=== PATIENT | female | born 1985 | race Caucasian/White ===

== ENCOUNTER 2020-05-02 10:07 | Day surgery (SDC) | payer OTHER, SELFPAY ==
[~2020-05-02] VITALS: Ht 165.1 cm; Wt 64.4 kg
[~2020-05-02 10:07] MED LIST: LIDOCAINE 2% 100MG/5ML SDV (FOR ANES.) As Ordered ONE; LR 1,000 ML IV ONE; MIDAZOLAM INJ 2MG/2ML VIAL (J2250 PER 1MG) As Ordered ONE; MULTCAP PO; VALT500T PO; fentaNYL 100 MCG/2 ML INJECTION (J3010) As Ordered ONE
[2020-05-02 10:39] LABS: HEMATOCRIT 44.6 % (36.0-47.0); MEAN CORPUSCULAR HEMOGLOBIN 30.2 pg (27.0-33.0); MEAN CORPUSCULAR HGB CONC 33.6 g/dl (32.0-36.5); MEAN CORPUSCULAR VOLUME 89.7 fl (80.0-96.0); PLATELET COUNT, AUTOMATED 281 10^3/uL (150-450); RED BLOOD COUNT 4.97 10^6/uL (4.00-5.40); WHITE BLOOD COUNT 4.4 10^3/uL (4.0-10.0)
[2020-05-02] MEDS ORDERED: SILVER NITRATE APPLICATOR As Ordered ONE (10:50)
[2020-05-02 10:59] LABS: HCG, SERUM QUALITATIVE NEGATIVE (NEGATIVE)
[2020-05-02 11:07] LABS: AMORPHOUS SEDIMENT SMALL (NEGATIVE); APPEARANCE, URINE HAZY (CLEAR); BACTERIA, URINE AUTO 1+ (NEGATIVE); BILIRUBIN, URINE AUTO NEGATIVE (NEGATIVE); BLOOD, URINE BLOOD 1+ (NEGATIVE); COLOR, URINE YELLOW (YELLOW); GLUCOSE, URINE (UA) AUTO NEGATIVE (NEGATIVE); KETONE, URINE AUTO NEGATIVE (NEGATIVE); LEUKOCYTE ESTERASE, URINE AUTO NEGATIVE (NEGATIVE); MUCUS, URINE LARGE (NEGATIVE); NITRITE, URINE AUTO NEGATIVE (NEGATIVE); PROTEIN, URINE AUTO NEGATIVE (NEGATIVE); RBC, URINE AUTO 4 /HPF (0-3); SPECIFIC GRAVITY URINE AUTO 1.023 (1.002-1.035); SQUAMOUS EPITHELIAL CELL UR AU 8 /HPF (0-6); UROBILINOGEN, URINE AUTO 0.2 mg/dL (0.0-2.0); WBC, URINE AUTO 0 /HPF (0-3)
[2020-05-02] MEDS ORDERED: ceFAZolin 2 GM/D5W 50 ML IV BAG (J0690 PER 500MG) As Ordered ONE (11:08)
[2020-05-02] MEDS ORDERED: BUPIVACAINE HCL 0.5% 30 ML VIAL As Ordered ONE (11:32)
[2020-05-02] MEDS ORDERED: dexameTHASONE 4 MG/ML 1ML VIAL (J1100 PER 1MG) As Ordered ONE (11:33)
[2020-05-02] MEDS ORDERED: propofoL 200 MG/20 ML VIAL As Ordered ONE (11:33)
[2020-05-02] MEDS ORDERED: KETOROLAC 60MG 2ML VIAL As Ordered ONE (11:34)
[2020-05-02] MEDS ORDERED: ONDANSETRON 4MG/2ML VIAL As Ordered ONE (11:34)
[2020-05-02] MEDS ORDERED: PHENYLephrine HCL 500 MCG/5 ML (100MCG/ML) SYRINGE (J2370) As Ordered ONE (11:41)
[2020-05-02 13:20] VITALS: BP 114/60
--- NOTE | 2020-05-03 23:06 | ROOPDOC ---
[facility] Report Of Operation Report of Operation DATE OF PROCEDURE: 05/02/20 PREPROCEDURE DIAGNOSES: 1. Jeff duct cyst 2 Dsypareunia 3. Pelvic pain POSTPROCEDURE DIAGNOSES: 1. Jeff duct cyst 2 Dsypareunia 3. Pelvic pain PROCEDURE: Jeff duct cystectomy with marsupilization SURGEON: Dr. Lauren Markham DO CERTIFIED PEST CONTROL TECHNICIAN: Dr. Abeba Vazquez MD ANESTHESIA: LMA. ESTIMATED BLOOD LOSS: Approximately 5 mL. COMPLICATIONS: none. DESCRIPTION OF PROCEDURE: The risks, benefits, indications and alternatives of the procedure were reviewed with the patient and informed consent was obtained. The patient was taken to the operating room where LMA anesthesia was obtained without difficulty. The patient was then placed in the low lithotomy position using Don Stirrups. Patient was then prepped and draped in the sterile fashion. A timeout was performed and the patient's identity and planned procedure were verified with the operative team. An exam under anesthesia was then performed and significant for a 5cm right Jeff duct cyst. 5ml of 1% Marcaine with epinephrine was injected into the superficial operative area. A 3 cm vertical incision was made over the Jeff duct cyst. Using a wet raytag, the mucosa was dissected off of the cyst until it was spontaneously ruptured notable for a brown milky matter that was cultured. Copious irrigation was performed. The cystotomy was then marsupilized using 3-0 vicryl suture in a running, non-locking fashion. Hemostasis was noted. All instruments were then removed from the patients vagina. The patient tolerated the procedure well. At the completion of the case the sponge and needle counts were correct x2. The patient was taken to the PACU in stable condition. LAUREN MARKHAM DO May 03, 2020 23:06
== END 2020-05-02 13:57 | disposition home or self-care (01) ==
LOC: M SDC 10:07
DX: Q52.4 Other congenital malformations of vagina (principal); N94.10 Unspecified dyspareunia; R10.2 Pelvic and perineal pain
CPT/HCPCS: 36415; 57135; 81001; 84703; 85027; 86850; 87070; 87075; 87205; J0690; J1100; J1885; J2250; J2370; J2405; J3010

== ENCOUNTER 2020-09-30 17:32 | Emergency (ER) | payer OTHER ==
[~2020-09-30] VITALS: Ht 165.1 cm; Wt 69.8 kg
[~2020-09-30 17:32] MED LIST changes: -LIDOCAINE 2% 100MG/5ML SDV (FOR ANES.) As Ordered ONE; -LR 1,000 ML IV ONE; -MIDAZOLAM INJ 2MG/2ML VIAL (J2250 PER 1MG) As Ordered ONE; -fentaNYL 100 MCG/2 ML INJECTION (J3010) As Ordered ONE
[2020-09-30] MEDS ORDERED: BIOT1CAP2 PO (17:44)
[2020-09-30 20:12] LABS: HEMATOCRIT 43.2 % (36.0-47.0); HEMOGLOBIN 14.3 g/dl (12.0-15.5); MEAN CORPUSCULAR HEMOGLOBIN 29.7 pg (27.0-33.0); MEAN CORPUSCULAR HGB CONC 33.1 g/dl (32.0-36.5); MEAN CORPUSCULAR VOLUME 89.6 fl (80.0-96.0); PLATELET COUNT, AUTOMATED 311 10^3/uL (150-450); RED BLOOD COUNT 4.82 10^6/uL (4.00-5.40)
[2020-09-30 20:36] LABS: MONO REFLEX EBV COMP NEGATIVE (NEGATIVE)
[2020-09-30 20:55] VITALS: BP 120/69
[2020-10-03 14:13] LABS: EBV VIRAL CAPSID AG IgG >600.0 U/mL (0.0-17.9); EBV VIRAL CAPSID AG IgM <36.0 U/mL (0.0-35.9)
== END 2020-09-30 20:58 | disposition home or self-care (01) ==
LOC: M ED 17:32
DX: R07.0 Pain in throat (principal); F17.290 Nicotine dependence, other tobacco product, uncomplicated

== ENCOUNTER → 2021-10-03 | Outpatient (CLI) | payer OTHER ==
[~2021-10-03] MED LIST changes: +BIOT1CAP2 PO
== END ==
LOC: M RAD 12:42
PROVIDERS: ATTEND Otolaryngology
DX: E04.1 Nontoxic single thyroid nodule (principal)

== ENCOUNTER → 2021-10-22 | Outpatient (CLI) | payer OTHER ==
[~2021-10-22] MED LIST changes: +LIDOCAINE 1% MDV 20ML VIAL As Ordered ONE
[2021-10-22 14:20] VITALS: BP 115/68
== END ==
LOC: M IRPRO 12:23
PROVIDERS: ATTEND Otolaryngology
DX: D34 Benign neoplasm of thyroid gland (principal); D44.0 Neoplasm of uncertain behavior of thyroid gland